=== PATIENT | female | born 1990 ===

== ENCOUNTER 2025-01-29 06:40 | Day surgery (SDC) | payer BC, SELFPAY ==
[2025-01-29 13:32] VITALS: BMI 23.0
[2025-01-29 13:33] VITALS: BMI 23.0
[2025-01-29 13:34] VITALS: BP 96/60
[2025-01-29] MEDS: TYLENOL 1000 MG PO (13:37)
[2025-01-29] MEDS: NORMOSOL-R/PLASMALYTE-A 1000 IV (13:37)
[2025-01-29 14:46] VITALS: BP 107/44; BP 96/60
[2025-01-29 15:00] VITALS: BP 102/55
[2025-01-29 15:15] VITALS: BP 98/51
[2025-01-29 15:29] VITALS: BP 103/68
== END 2025-01-29 15:29 | disposition home or self-care (01) ==
LOC: SDS 06:40
PROVIDERS: ATTENDING PHYSICIAN Surgery
DX: K60.50 Anorectal fistula, unspecified (principal); K60.2 Anal fissure, unspecified; K64.4 Residual hemorrhoidal skin tags
CPT/HCPCS: 46275